=== PATIENT | male | born 1990 | race Caucasian/White ===

== ENCOUNTER 2017-03-04 11:55 | Emergency (ER) | payer SELFPAY ==
[2017-03-04 12:02] VITALS: BP 148/94
--- NOTE | 2017-03-04 12:35 | ER Document Report ---
HPI - HPI Patient complains to provider of: dental pain Pain Level: 3 Context: 26 yo male c/o left lower dental pain x 3 days. + facial swelling. no fever Associated Symptoms: None Exacerbated by: Food Relieved by: Denies Similar symptoms previously: Yes - ROS Systems Reviewed and Negative: Yes All other systems reviewed and negative - DERM Skin Color: Normal, Ruch Past Medical History - General Information source: Patient - Social History Smoking Status: Never Smoker Frequency of alcohol use: None Drug Abuse: None Lives with: Family Family History: Reviewed & Not Pertinent - Medical History Medical History: Negative Pulmonary Medical History: Reports: Hx Asthma Renal/ Medical History: Denies: Hx Peritoneal Dialysis Past Surgical History: Reports: Hx Orthopedic Surgery - left knee - Immunizations Hx Diphtheria, Pertussis, Tetanus Vaccination: Yes Vertical Provider Document - CONSTITUTIONAL Agree With Documented VS: Yes Exam Limitations: No Limitations General Appearance: WD/WN, No Apparent Distress - INFECTION CONTROL TRAVEL OUTSIDE OF THE [place] IN LAST 30 DAYS: No - HEENT HEENT: Atraumatic, PERRLA Mouth Diagram: 1 - pain. no gingival abscess appreciated - NECK Neck: Normal Inspection, Supple - RESPIRATORY Respiratory: Breath Sounds Normal, No Respiratory Distress O2 Sat by Pulse Oximetry: 99 - CARDIOVASCULAR Cardiovascular: Regular Rate, Regular Rhythm - NEURO Level of Consciousness: Awake, Alert, Appropriate - DERM Integumentary: Warm, Dry Course - Re-evaluation Re-evalutation: 03/04/17 12:34 BP noted to be elevated. no hx/o HTN. maybe secondary to pain. pt made aware of blood pressure and recommended to keep BP diary and follow up with pcm. pt is asymptomatic with BP. stable for discharge and agreeable with plan - Vital Signs Vital signs: Temp Pulse Resp BP Pulse Ox 98.2 F 80 18 148/94 H 99 03/04/17 11:58 03/04/17 11:58 03/04/17 11:58 03/04/17 11:58 03/04/17 11:58 Discharge - Discharge Clinical Impression: Pain, dental Condition: Stable Disposition: HOME, SELF-CARE Instructions: Oral Narcotic Medication ([facility]), Toothache ([facility]), Clindamycin ([facility] ) Additional Instructions: Take medications as prescribed Follow up with dental for further evaluation and treatment Prescriptions: Clindamycin HCl 300 mg PO QID #28 capsule Hydrocodone/Acetaminophen [[place] 5-325 Tablet] 1 each PO Q4 #10 tablet Forms: Elevated Blood Pressure
== END 2017-03-04 12:45 | disposition home or self-care (01) ==
LOC: ER 11:55
DX: K08.9 Disorder of teeth and supporting structures, unspecified (principal); R22.0 Localized swelling, mass and lump, head; R03.0 Elevated blood-pressure reading, without diagnosis of hypertension; J45.909 Unspecified asthma, uncomplicated
CPT/HCPCS: 99282

== ENCOUNTER 2017-07-28 13:45 | Emergency (ER) | payer SELFPAY ==
[2017-07-28 15:41] LABS: ABSOLUTE BASOPHILS # (AUTO) 0.1 10^3/uL (0.0-0.2); ABSOLUTE EOSINOPHILS # (AUTO) 0.2 10^3/uL (0.0-0.6); ABSOLUTE LYMPHOCYTES (AUTO) 2.4 10^3/uL (0.5-4.7); ABSOLUTE MONOCYTES (AUTO) 0.7 10^3/uL (0.1-1.4); ABSOLUTE NEUT (AUTO) 5.3 10^3/uL (1.7-8.2); BASOPHILS % (AUTO) 1.3 % (0-2); EOSINOPHILS % (AUTO) 2.7 % (0-6); HEMATOCRIT 46.6 % (37.9-51.0); HEMOGLOBIN 16.4 g/dL (13.5-17.0); HGB HCT DIFFERENCE 2.6; LYMPHOCYTES % (AUTO) 27.8 % (13-45); MEAN CORPUSCULAR HEMOGLOBIN 30.1 pg (27.0-33.4); MEAN CORPUSCULAR HGB CONC 35.3 g/dL (32.0-36.0); MEAN CORPUSCULAR VOLUME 85 fl (80-97); MONOCYTES % (AUTO) 7.6 % (3-13); RED BLOOD COUNT 5.46 10^6/uL (4.35-5.55); RED CELL DISTRIBUTION WIDTH 13.4 % (11.5-14.0); SEGMENTED NEUTROPHILS % (AUTO) 60.6 % (42-78); WHITE BLOOD COUNT 8.7 10^3/uL (4.0-10.5)
[2017-07-28 15:49] LABS: APPEARANCE,URINE CLEAR; BILIRUBIN,URINE NEGATIVE (NEGATIVE); GLUCOSE, URINE NEGATIVE (NEGATIVE); KETONES,URINE NEGATIVE (NEGATIVE); LEUKOCYTE ESTERASE,URINE NEGATIVE (NEGATIVE); NITRITE,URINE NEGATIVE (NEGATIVE); PROTEIN,URINE NEGATIVE (NEGATIVE); URINE SPECIFIC GRAVITY 1.016; UROBILINOGEN,URINE NEGATIVE mg/dL (<2.0)
[2017-07-28 16:27] LABS: ALANINE AMINOTRANSFERASE 68 U/L (21-72); ALBUMIN 4.9 g/dL (3.5-5.0); ALKALINE PHOSPHATASE 56 U/L (38-126); ANION GAP 13 (5-19); ASPARTATE AMINO TRANSFERASE 37 U/L (17-59); BILIRUBIN,DIRECT 0.5 mg/dL (0.0-0.4); BILIRUBIN,TOTAL 0.7 mg/dL (0.2-1.3); BLOOD UREA NITROGEN 17 mg/dL (7-20); CALCIUM 10.4 mg/dL (8.4-10.2); CARBON DIOXIDE 27 mmol/L (22-30); CHLORIDE 102 mmol/L (98-107); CREATININE RESULT 0.98 mg/dL (0.52-1.25); GLUCOSE 88 mg/dL (75-110); LIPASE 37.8 U/L (23-300); POTASSIUM 4.5 mmol/L (3.6-5.0); SODIUM 141.6 mmol/L (137-145); TOTAL PROTEIN 8.4 g/dL (6.3-8.2)
--- NOTE | 2017-07-28 16:37 | ER Document Report ---
ED General - General Chief Complaint: Abdominal Pain Stated Complaint: ABDOMINAL PAIN Time Seen by Provider: 07/28/17 15:18 Mode of Arrival: Ambulatory Information source: Patient Notes: Patient states he has had one year of nausea. He states it is worse when he eats and better when he does not. There is no radiation of the symptoms. The symptoms are intermittent. He states that he has some minimal pain but mainly has nausea. He states that he has not had any vomiting. No fevers. He states he also had some intermittent bloody stools. TRAVEL OUTSIDE OF THE [place] IN LAST 30 DAYS: No - Related Data Allergies/Adverse Reactions: Penicillins Allergy (Verified 07/28/17 14:07) Past Medical History - General Information source: Patient - Social History Smoking Status: Never Smoker Chew tobacco use (# tins/day): No Frequency of alcohol use: None Drug Abuse: None Family History: Reviewed & Not Pertinent Patient has suicidal ideation: No Patient has homicidal ideation: No Pulmonary Medical History: Reports: Hx Asthma Renal/ Medical History: Denies: Hx Peritoneal Dialysis Past Surgical History: Reports: Hx Orthopedic Surgery - left knee - Immunizations Hx Diphtheria, Pertussis, Tetanus Vaccination: Yes Review of Systems - Review of Systems Constitutional: denies: Chills, Fever Cardiovascular: denies: Chest pain, Palpitations Gastrointestinal: Abdominal pain, Nausea. denies: Diarrhea, Vomiting -: Yes All other systems reviewed and negative Physical Exam - Vital signs Vitals: Temp Pulse Resp BP Pulse Ox 98.5 F 75 14 134/79 H 97 07/28/17 14:08 07/28/17 14:08 07/28/17 14:08 07/28/17 14:08 07/28/17 14:08 Interpretation: Hypertensive - General General appearance: Appears well, Alert - HEENT Head: Normocephalic, Atraumatic Eyes: Normal Pupils: PERRL - Respiratory Respiratory status: No respiratory distress Chest status: Nontender Breath sounds: Normal Chest palpation: Normal - Cardiovascular Rhythm: Regular Heart sounds: Normal auscultation Murmur: No - Abdominal Inspection: Normal Distension: No distension Bowel sounds: Normal Tenderness: Nontender Organomegaly: No organomegaly - Back Back: Normal, Nontender - Extremities General upper extremity: Normal inspection, Nontender, Normal color, Normal ROM , Normal temperature General lower extremity: Normal inspection, Nontender, Normal color, Normal ROM , Normal temperature, Normal weight bearing. No: Maribel's sign - Neurological Neuro grossly intact: Yes Cognition: Normal Orientation: AAOx4 Stuart Coma Scale Eye Opening: Spontaneous Trail Coma Scale Verbal: Oriented Trail Coma Scale Motor: Obeys Commands Trail Coma Scale Total: 15 Speech: Normal Motor strength normal: LUE, RUE, LLE, RLE Sensory: Normal - Psychological Associated symptoms: Normal affect, Normal mood - Skin Skin Temperature: Warm Skin Moisture: Dry Skin Color: Normal Course - Vital Signs Vital signs: Temp Pulse Resp BP Pulse Ox 98.5 F 75 14 134/79 H 97 07/28/17 14:08 07/28/17 14:08 07/28/17 14:08 07/28/17 14:08 07/28/17 14:08 - Laboratory Result Diagrams: 07/28/17 15:22 07/28/17 15:22 Laboratory results interpreted by me: 07/28/17 15:22 Calcium 10.4 H Direct Bilirubin 0.5 H Total Protein 8.4 H Discharge - Discharge Clinical Impression: Nausea Condition: Stable Disposition: HOME, SELF-CARE Additional Instructions: Please follow-up with your primary care physician as soon as possible. Prescriptions: Sucralfate [Carafate Susp 1 Gm/10 Ml Udcup] 1 gm PO QID 30 Days udc Forms: Elevated Blood Pressure Referrals: DUKE CHERRY MD [ACTIVE STAFF] - Follow up as needed
[2017-07-28 17:27] VITALS: BP 142/89
== END 2017-07-28 19:27 | disposition home or self-care (01) ==
LOC: ER 13:45
DX: R11.0 Nausea (principal); R10.9 Unspecified abdominal pain; J45.909 Unspecified asthma, uncomplicated
CPT/HCPCS: 36415; 80053; 81001; 83690; 85025; 99284

== ENCOUNTER 2017-10-02 02:00 | Emergency (ER) | payer OTHER ==
--- NOTE | 2017-10-02 03:02 | ER Document Report ---
ED General - General Mode of Arrival: Ambulatory Information source: Patient TRAVEL OUTSIDE OF THE [place] IN LAST 30 DAYS: No - HPI Onset: Just prior to arrival <THERESA VASQUEZ - Last Filed: 10/02/17 04:13> <JOSS RONDON - Last Filed: 10/02/17 04:38> - General Chief Complaint: Cough Stated Complaint: COUGHING BLOOD Time Seen by Provider: 10/02/17 02:45 Notes: Patient is a 27 year old male that presents to the emergency department complaining of coughing up blood onset around 02:00. Patient states that he has had a small cough for two days but it worsened when he was eating string cheese and started to cough up blood. Patient states that the blood was fresh and around a quarter of a cup full in amount. Patient states that when he was coughing up blood he could not breath and states "it felt like something opened up". Patient also complains of a itchy feeling at the top of his right lung and an itchy feeling in his throat. Patient denies any SOB or lightheadedness at this time. Patient states he has not been on any long drives or taken any hormones recently. (THERESA VASQUEZ) - Related Data Allergies/Adverse Reactions: Penicillins Allergy (Verified 10/02/17 02:03) Past Medical History - General Information source: Patient - Social History Smoking Status: Never Smoker Chew tobacco use (# tins/day): No Frequency of alcohol use: None Drug Abuse: None Family History: Reviewed & Not Pertinent Patient has suicidal ideation: No Patient has homicidal ideation: No Pulmonary Medical History: Reports: Hx Asthma Renal/ Medical History: Denies: Hx Peritoneal Dialysis Past Surgical History: Reports: Hx Orthopedic Surgery - left knee - Immunizations Hx Diphtheria, Pertussis, Tetanus Vaccination: Yes <THERESA VASQUEZ - Last Filed: 10/02/17 04:13> Review of Systems - Review of Systems Constitutional: No symptoms reported EENT: No symptoms reported Cardiovascular: No symptoms reported Respiratory: See HPI, Cough - coughing up blood, Sputum, Other. denies: Short of breath Gastrointestinal: No symptoms reported Genitourinary: No symptoms reported Male Genitourinary: No symptoms reported Musculoskeletal: No symptoms reported Skin: No symptoms reported Hematologic/Lymphatic: No symptoms reported Neurological/Psychological: No symptoms reported -: Yes All other systems reviewed and negative <CHRISTINATHERESA BAEZA - Last Filed: 10/02/17 04:13> Physical Exam <CHRISTINAVIGNESHFAUSTINO - Last Filed: 10/02/17 04:13> <JOSS RONDON - Last Filed: 10/02/17 04:38> - Vital signs Vitals: Temp Pulse Resp BP Pulse Ox 98.3 F 103 H 22 H 145/87 H 97 10/02/17 02:05 10/02/17 02:05 10/02/17 02:05 10/02/17 02:05 10/02/17 02:05 - Notes Notes: GENERAL: Alert, interacts well. No acute distress. HEAD: Normocephalic, atraumatic. EYES: Pupils equal, round, and reactive to light. Extraocular movements intact. ENT: Oral mucosa moist, tongue midline. Nares patent, no nasal septal hematoma. Left TM is slightly injected. Right TM normal. No bleeding in the nose. Small amount of blood in the posterior orophraynx. LUNGS: Clear to auscultation bilaterally, no wheezes, rales, or rhonchi. No respiratory distress. HEART: Regular rate and rhythm. No murmurs, gallops, or rubs. ABDOMEN: Soft, non-tender. Non-distended. Bowel sounds present in all 4 quadrants. EXTREMITIES: Moves all 4 extremities spontaneously. NEUROLOGICAL: Alert and oriented x3. Normal speech. PSYCH: Normal affect, normal mood. SKIN: Warm, dry, normal turgor. No rashes or lesions noted. (CHRISTINAVIGNESHFAUSTINO) Course - Laboratory Result Diagrams: 10/02/17 03:05 10/02/17 03:05 <CHRISTINATHERESA BAEZA - Last Filed: 10/02/17 04:13> - Laboratory Result Diagrams: 10/02/17 03:05 10/02/17 03:05 <JOSS RONDON - Last Filed: 10/02/17 04:38> - Re-evaluation Re-evalutation: 10/02/17 04:03 CBC shows leukocytosis of 14.3, coags normal, CMP grossly unremarkable, chest x- ray shows no acute process. No sign of continuing bleeding at this time despite continuing dry cough. No evidence of massive hemoptysis, amount of blood estimated at approximately 1/4 cup by patient. No hypoxia, tachypnea or tachycardia. Patient is recommended to return should he develop further hemoptysis, given Tessalon Perles to decrease his cough and recommend follow-up as an outpatient with his primary care physician for further workup. No risk factors for pulmonary embolism. (JOSS RONDON) - Vital Signs Vital signs: Temp Pulse Resp BP Pulse Ox 98 F 78 18 142/87 H 98 10/02/17 04:23 10/02/17 04:23 10/02/17 04:23 10/02/17 04:23 10/02/17 04:23 - Laboratory Laboratory results interpreted by me: 10/02/17 10/02/17 03:05 03:05 WBC 14.3 H Absolute Neutrophils 9.6 H Sodium 145.1 H Total Protein 8.5 H Discharge <THERESA VASQUEZ - Last Filed: 10/02/17 04:13> <JOSS RONDON - Last Filed: 10/02/17 04:38> - Discharge Clinical Impression: Cough with hemoptysis Hypertension Qualifiers: Hypertension type: unspecified Qualified Code(s): I10 - Essential (primary) hypertension Obesity Qualifiers: Obesity type: unspecified obesity type Obesity classification: adult class 3 ( BMI >= 40) Serious obesity comorbidity presence: without serious comorbidity Body mass index: BMI 45.0-49.9 Qualified Code(s): E66.9 - Obesity, unspecified Condition: Stable Disposition: HOME, SELF-CARE Additional Instructions: Hemoptysis Hemoptysis (coughing up blood) can occur with many different diseases. Most commonly, it's due to an infection such as bronchitis. Although alarming, the presence of blood in the phlegm doesn't change the treatment of bronchitis or pneumonia. The physician has evaluated you to see if there is evidence of an underlying problem requiring further evaluation. Hemoptysis without an identifiable cause can be due to tumors or hidden infections. Sometimes it can come from a nosebleed. We did not see any signs of infection or tumor today. Return for a recheck if the blood increases greatly in amount, or if you develop shortness of breath, high fever, severe chest pain, or other alarming new symptoms. You have high blood pressure. This can be due to anxiety but it can also be a health problem that needs to be treated. Please follow-up with your primary care physician for further evaluation of your elevated blood pressure. Prescriptions: Benzonatate [Tessalon Perles 100 mg Capsule] 100 mg PO Q8HP PRN #40 capsule PRN Reason: Forms: Elevated Blood Pressure Referrals: MINERVA GARZA MD [ACTIVE STAFF] - Follow up in 1 week Scribe Attestation: 10/02/17 04:38 I personally performed the services described in the documentation, reviewed and edited the documentation which was dictated to the scribe in my presence, and it accurately records my words and actions. (JOSS RONDON) Scribe Documentation - Scribe Written by Selinaibe:: Mary Lou Nascimento, 10/02/2017 acting as scribe for :: Garrett <THERESA VASQUEZ - Last Filed: 10/02/17 04:13>
--- NOTE | 2017-10-02 03:15 | RADIOLOGY REPORT (SQ) ---
EXAM DESCRIPTION: CHEST PA/LAT COMPLETED DATE/TIME: 10/02/2017 3:04 am REASON FOR STUDY: coughing up blood COMPARISON: None. EXAM PARAMETERS: NUMBER OF VIEWS: two views TECHNIQUE: Digital Frontal and Lateral radiographic views of the chest acquired. RADIATION DOSE: NA LIMITATIONS: none FINDINGS: LUNGS AND PLEURA: No opacities, masses or pneumothorax. No pleural effusion. MEDIASTINUM AND HILAR STRUCTURES: No masses or contour abnormalities. HEART AND VASCULAR STRUCTURES: Heart normal size. No evidence for failure. BONES: No acute findings. HARDWARE: None in the chest. OTHER: No other significant finding. IMPRESSION: NO SIGNIFICANT RADIOGRAPHIC FINDING IN THE CHEST. TECHNICAL DOCUMENTATION: JOB ID: [id number] [employer]- All Rights Reserved
[2017-10-02 03:36] LABS: ABSOLUTE BASOPHILS # (AUTO) 0.1 10^3/uL (0.0-0.2); ABSOLUTE EOSINOPHILS # (AUTO) 0.3 10^3/uL (0.0-0.6); ABSOLUTE LYMPHOCYTES (AUTO) 3.1 10^3/uL (0.5-4.7); ABSOLUTE MONOCYTES (AUTO) 1.1 10^3/uL (0.1-1.4); ABSOLUTE NEUT (AUTO) 9.6 10^3/uL (1.7-8.2); EOSINOPHILS % (AUTO) 2.5 % (0-6); HEMATOCRIT 45.9 % (37.9-51.0); HEMOGLOBIN 15.9 g/dL (13.5-17.0); HGB HCT DIFFERENCE 1.8; LYMPHOCYTES % (AUTO) 21.8 % (13-45); MEAN CORPUSCULAR HEMOGLOBIN 29.9 pg (27.0-33.4); MEAN CORPUSCULAR HGB CONC 34.7 g/dL (32.0-36.0); MEAN CORPUSCULAR VOLUME 86 fl (80-97); MONOCYTES % (AUTO) 7.4 % (3-13); RED BLOOD COUNT 5.32 10^6/uL (4.35-5.55); SEGMENTED NEUTROPHILS % (AUTO) 67.3 % (42-78); WHITE BLOOD COUNT 14.3 10^3/uL (4.0-10.5)
[2017-10-02 03:51] LABS: PROTHROMBIN TIME 12.7 SEC (11.4-15.4)
[2017-10-02 03:52] LABS: PARTIAL THROMBOPLASTIN TIME 35.5 SEC (23.5-35.8)
[2017-10-02 03:54] LABS: ALANINE AMINOTRANSFERASE 70 U/L (21-72); ALKALINE PHOSPHATASE 57 U/L (38-126); ANION GAP 18 (5-19); ASPARTATE AMINO TRANSFERASE 28 U/L (17-59); BILIRUBIN,DIRECT 0.4 mg/dL (0.0-0.4); BILIRUBIN,TOTAL 0.6 mg/dL (0.2-1.3); BLOOD UREA NITROGEN 17 mg/dL (7-20); CALCIUM 9.9 mg/dL (8.4-10.2); CARBON DIOXIDE 26 mmol/L (22-30); CHLORIDE 101 mmol/L (98-107); CREATININE RESULT 1.23 mg/dL (0.52-1.25); GLUCOSE 102 mg/dL (75-110); POTASSIUM 4.2 mmol/L (3.6-5.0); SODIUM 145.1 mmol/L (137-145); TOTAL PROTEIN 8.5 g/dL (6.3-8.2)
[2017-10-02] MEDS ORDERED: BENZONATATE 100 MG CAPSULE PO ONE (04:14)
[2017-10-02 04:24] VITALS: BP 142/87
== END 2017-10-02 04:23 | disposition home or self-care (01) ==
LOC: ER 02:00
DX: R04.2 Hemoptysis (principal); I10 Essential (primary) hypertension; E66.9 Obesity, unspecified; Z68.42 Body mass index [BMI] 45.0-49.9, adult; Z88.0 Allergy status to penicillin
CPT/HCPCS: 36415; 71020; 80053; 85025; 85610; 85730; 99283

== ENCOUNTER 2019-06-01 21:56 | Emergency (ER) | payer SELFPAY ==
--- NOTE | 2019-06-01 23:46 | EKG REPORT ---
SEVERITY:- ABNORMAL ECG - SINUS RHYTHM INCOMPLETE RIGHT BUNDLE BRANCH BLOCK : Confirmed by: Norberto Coley 01-Jun-2019 23:45:54
--- NOTE | 2019-06-02 00:47 | ER Document Report ---
ED General - General Chief Complaint: Chest Pain > 30 Stated Complaint: ABDOMINAL PAIN Time Seen by Provider: 06/02/19 00:34 Notes: Patient is a pleasant 29-year-old male who presents with complaint of recurrent burning pain into his epigastrium and right upper quadrant. He says sometimes and will radiate around rest of his upper abdomen. He says it seems to occur more when he eats. He also occurs at night when he lays down to sleep. Been admitted for a while but became worse tonight. He also has a history of high blood pressure which he takes lisinopril and hydrochlorothiazide. Says he notices that when he is having the pain that his blood pressure gets higher. No vomiting. No fevers. No bloody stools. No other complaints at this time. Have a previous history of gastric ulcer. He does not take a PPI or H2 evelin. TRAVEL OUTSIDE OF THE [place] IN LAST 30 DAYS: No - Related Data Allergies/Adverse Reactions: Penicillins Allergy (Verified 10/02/17 02:03) Past Medical History - Social History Smoking Status: Never Smoker Frequency of alcohol use: None Drug Abuse: None Family History: Reviewed & Not Pertinent Pulmonary Medical History: Reports: Hx Asthma Renal/ Medical History: Denies: Hx Peritoneal Dialysis Past Surgical History: Reports: Hx Orthopedic Surgery - left knee - Immunizations Hx Diphtheria, Pertussis, Tetanus Vaccination: Yes Review of Systems - Review of Systems Notes: My Normal Review Basic REVIEW OF SYSTEMS: CONSTITUTIONAL : Denies fever, chills, or sweats. Denies recent illness. CARDIOVASCULAR: Denies chest pain. RESPIRATORY: Denies cough, cold, or chest congestion. Denies shortness of breath, difficulty breathing, or wheezing. GASTROINTESTINAL: Upper abdominal pain. Some nausea. GENITOURINARY: Denies difficulty urinating, painful urination, burning, frequency, or blood in urine. MUSCULOSKELETAL: Denies neck or back pain or joint pain or swelling. SKIN: Denies rash or skin lesions. NEUROLOGICAL: Denies altered mental status or loss of consciousness. Denies headache. Denies weakness or paralysis or loss of use of either side. Denies problems with gait or speech. Denies sensory or motor loss. ALL OTHER SYSTEMS REVIEWED AND NEGATIVE. Physical Exam - Vital signs Vitals: Temp Pulse Resp BP Pulse Ox 98.6 F 69 14 148/70 H 98 06/01/19 22:09 06/01/19 22:09 06/01/19 22:09 06/01/19 22:09 06/01/19 22:09 - Notes Notes: General Appearance: Well nourished, alert, cooperative, no acute distress, no obvious discomfort. Well-appearing. Vitals: reviewed, See vital signs table. Head: no swelling or tenderness to the head Eyes: PERRL, EOMI, Conjuctiva clear Mouth: No decreasd moisture Lungs: No wheezing, No rales, No rhonci, No accessory muscle use, good air exchange bilaterally. Heart: Normal rate, Regular rythm, No murmur, no rub Abdomen: Normal BS, soft, No rigidity, some mild upper abdominal pain to palpation at worse over the epigastrium., No guarding, no rebound, no abdominal masses, no organomegaly Extremities: good pulses in all extremities, no edema. Skin: warm, dry, appropriate color, no rash Neuro: speech clear, oriented x 3, normal affect, responds appropriately to questions. Course - Re-evaluation Re-evalutation: 06/02/19 02:20 Patient's work-up looking at his gallbladder does not show any concerning findings other than a fatty liver. Discuss fatty liver with him informed him the need for weight loss. I like that his pain is related to gastritis and possible duodenitis. He has a known gastric ulcer. He has a burning type pain in his upper abdomen is worse at nighttime. Is also noticed some with eating. I feel that its appropriate treat him for gastritis and duodenitis. I will place him on Carafate as well as Prilosec. I encouraged him to follow-up closely with his primary care doctor. Blood pressure is low but high however informed him I would not want to add anything to his blood pressure at this time as it is likely high because his been having pain and if we get of his pain is blood pressure could drop too low if he is placed on a third blood pressure medication. Patient is understanding of this. I encouraged him to keep track of his blood pressure and follow-up closely with his primary care doctor this coming week for reevaluation. Patient encouraged to return to ER if he has black or tarry stools, worsening pain, fevers, or feels unwell. Dictation of this chart was performed using voice recognition software; ther efore, there may be some unintended grammatical errors. - Vital Signs Vital signs: Temp Pulse Resp BP Pulse Ox 98.4 F 68 18 136/67 H 98 06/02/19 02:31 06/02/19 02:31 06/02/19 02:31 06/02/19 02:31 06/02/19 02:31 - Laboratory Result Diagrams: 06/02/19 00:50 06/02/19 00:50 Laboratory results interpreted by me: 06/02/19 06/02/19 00:50 00:50 WBC 11.4 H Creatinine 1.26 H Total Protein 8.3 H - EKG Interpretation by Me Additional EKG results interpreted by me: 06/02/19 02:16 EKG is reviewed and interpreted by me. EKG shows sinus rhythm with rate of [address] segment elevation or depression. No ischemic T wave inversions. FL interval and QTc intervals are within normal range. QRS duration is slightly prolonged. No old EKG available for comparison. Discharge - Discharge Clinical Impression: Abdominal pain, Hypertension Condition: Good Disposition: HOME, SELF-CARE Additional Instructions: Your ultrasound looking at your gallbladder did not show any concerning abnormalities with the gallbladder. I suspect that most likely your pain is re lated to gastritis or nonbleeding ulcer in your stomach. This will cause pain when you eat and drink and also cause you to vomit. Please buy [id number] omeprazole. This is the generic of Prilosec. Please take 20 mg of omeprazole every day for 2 weeks. After 2 weeks you should switch to Pepcid 20 mg a day. I have prescribed Carafate. You can start taking the Carafate if you are not having improvement of your pain after 2-3 days of treatment with the omeprazole. Diet is extremely important in treating this. Please drink non-caffeinated nonacidic fluids for the next 24 hours. After 24 hours you can start eating food again. Please avoid anything that spicy, acidic, or fatty or fried. Please eat only very bland foods such as bread or rice. Please avoid smoking. Please avoid coffee and tea. Please return to the ER immediately if you have worsening pain, fevers, intractable vomiting, or if you ever have any vomiting of blood or black or tarry stools. Avoid any NSAID use such as advil, ibuprofen, motrin, aleve, or naprosyn. Tylenol is safe to take. The ultrasound of the right upper portion of your abdomen does show that you have beginnings of a fatty liver. Please work on weight loss as this will help reduce the chances of your liver progressing. Without weight loss or diet change her liver could potentially become more fatty and then lead to liver failure. Pleae follow up with your doctor this coming week for reevaluation. Prescriptions: Sucralfate [Carafate 1 gm Tablet] 1 gm PO ACHS #120 tablet Forms: Return to Work
[2019-06-02 01:04] LABS: ABSOLUTE BASOPHILS # (AUTO) 0.1 10^3/uL (0.0-0.2); ABSOLUTE EOSINOPHILS # (AUTO) 0.3 10^3/uL (0.0-0.6); ABSOLUTE LYMPHOCYTES (AUTO) 2.7 10^3/uL (0.5-4.7); ABSOLUTE MONOCYTES (AUTO) 0.9 10^3/uL (0.1-1.4); ABSOLUTE NEUT (AUTO) 7.4 10^3/uL (1.7-8.2); BASOPHILS % (AUTO) 0.7 % (0-2); EOSINOPHILS % (AUTO) 2.6 % (0-6); HEMATOCRIT 45.2 % (37.9-51.0); HEMOGLOBIN 15.4 g/dL (13.5-17.0); LYMPHOCYTES % (AUTO) 23.7 % (13-45); MEAN CORPUSCULAR HEMOGLOBIN 28.9 pg (27.0-33.4); MEAN CORPUSCULAR HGB CONC 34.2 g/dL (32.0-36.0); MEAN CORPUSCULAR VOLUME 85 fl (80-97); MONOCYTES % (AUTO) 7.8 % (3-13); PLATELET COUNT 301 10^3/uL (150-450); RED BLOOD COUNT 5.34 10^6/uL (4.35-5.55); RED CELL DISTRIBUTION WIDTH 12.8 % (11.5-14.0); SEGMENTED NEUTROPHILS % (AUTO) 65.2 % (42-78); TOTAL CELLS COUNTED % (AUTO) 100 %; WHITE BLOOD COUNT 11.4 10^3/uL (4.0-10.5)
[2019-06-02 01:27] LABS: ALANINE AMINOTRANSFERASE 41 U/L (21-72); ALKALINE PHOSPHATASE 54 U/L (38-126); ANION GAP 13 (5-19); ASPARTATE AMINO TRANSFERASE 36 U/L (17-59); BILIRUBIN,DIRECT 0.3 mg/dL (0.0-0.4); BILIRUBIN,TOTAL 0.6 mg/dL (0.2-1.3); BLOOD UREA NITROGEN 19 mg/dL (7-20); CARBON DIOXIDE 27 mmol/L (22-30); CHLORIDE 99 mmol/L (98-107); GLUCOSE 93 mg/dL (75-110); POTASSIUM 3.6 mmol/L (3.6-5.0); TOTAL PROTEIN 8.3 g/dL (6.3-8.2)
--- NOTE | 2019-06-02 01:33 | RADIOLOGY REPORT (SQ) ---
CLINICAL HISTORY: RUQ pain COMPARISON: None. TECHNIQUE: US ABDOMEN DOPPLER LIMITED on 06/02/2019 12:42 AM CDT FINDINGS: Liver is fatty in echotexture. Portal vein is patent. Gallbladder is normally distended without wall thickening, gallstones or pericholecystic fluid. Common bile that measures 2 mm. Right kidney measures 11.7 cm without hydronephrosis. IMPRESSION: Fatty liver. Otherwise unremarkable study.
[2019-06-02] MEDS ORDERED: FAMOTIDINE 20 MG TABLET PO ONE (02:23)
[2019-06-02] MEDS ORDERED: SUCRALFATE 1 GM TABLET PO ONE (02:23)
[2019-06-02 02:47] VITALS: BP 136/67
== END 2019-06-02 02:43 | disposition home or self-care (01) ==
LOC: ER 21:56
DX: K25.9 Gastric ulcer, unspecified as acute or chronic, without hemorrhage or perforation (principal); I10 Essential (primary) hypertension; R10.13 Epigastric pain; R10.11 Right upper quadrant pain; R11.0 Nausea; K76.0 Fatty (change of) liver, not elsewhere classified; J45.909 Unspecified asthma, uncomplicated; Z79.899 Other long term (current) drug therapy; Z88.0 Allergy status to penicillin
CPT/HCPCS: 36415; 76705; 80053; 83690; 85025; 93005; 93010; 93976; 99284

== ENCOUNTER 2019-10-22 01:08 | Emergency (ER) | payer SELFPAY ==
[2019-10-22 02:34] LABS: ABSOLUTE BASOPHILS # (AUTO) 0.1 10^3/uL (0.0-0.2); ABSOLUTE EOSINOPHILS # (AUTO) 0.2 10^3/uL (0.0-0.6); ABSOLUTE LYMPHOCYTES (AUTO) 2.8 10^3/uL (0.5-4.7); ABSOLUTE MONOCYTES (AUTO) 0.9 10^3/uL (0.1-1.4); ABSOLUTE NEUT (AUTO) 8.4 10^3/uL (1.7-8.2); EOSINOPHILS % (AUTO) 1.5 % (0-6); HEMATOCRIT 52.6 % (37.9-51.0); HEMOGLOBIN 18.2 g/dL (13.5-17.0); LYMPHOCYTES % (AUTO) 22.6 % (13-45); MEAN CORPUSCULAR HEMOGLOBIN 28.9 pg (27.0-33.4); MEAN CORPUSCULAR HGB CONC 34.6 g/dL (32.0-36.0); MEAN CORPUSCULAR VOLUME 84 fl (80-97); MONOCYTES % (AUTO) 7.1 % (3-13); PLATELET COUNT 375 10^3/uL (150-450); RED BLOOD COUNT 6.29 10^6/uL (4.35-5.55); RED CELL DISTRIBUTION WIDTH 12.9 % (11.5-14.0); SEGMENTED NEUTROPHILS % (AUTO) 67.8 % (42-78); TOTAL CELLS COUNTED % (AUTO) 100 %; WHITE BLOOD COUNT 12.4 10^3/uL (4.0-10.5)
[2019-10-22 02:42] LABS: ALBUMIN 5.2 g/dL (3.5-5.0); ALKALINE PHOSPHATASE 66 U/L (38-126); ANION GAP 16 (5-19); ASPARTATE AMINO TRANSFERASE 34 U/L (17-59); BILIRUBIN,DIRECT 0.2 mg/dL (0.0-0.4); BILIRUBIN,TOTAL 0.7 mg/dL (0.2-1.3); BLOOD UREA NITROGEN 21 mg/dL (7-20); CALCIUM 10.3 mg/dL (8.4-10.2); CARBON DIOXIDE 28 mmol/L (22-30); CHLORIDE 94 mmol/L (98-107); CREATINE KINASE 455 U/L (55-170); GLUCOSE 100 mg/dL (75-110); POTASSIUM 3.4 mmol/L (3.6-5.0); TOTAL PROTEIN 9.2 g/dL (6.3-8.2)
[2019-10-22 02:53] LABS: CREATINE KINASE MB 5.13 ng/mL (<4.55)
[2019-10-22 02:54] LABS: TROPONIN I < 0.012 ng/mL
[2019-10-22] MEDS ORDERED: PANTOPRAZOLE SODIUM 40 MG TABLET.DR PO ONE (07:23)
--- NOTE | 2019-10-22 07:38 | EKG REPORT ---
SEVERITY:- ABNORMAL ECG - SINUS RHYTHM IVCD, CONSIDER ATYPICAL RBBB : Confirmed by: Sal Velasquez MD 22-Oct-2019 07:37:43
--- NOTE | 2019-10-22 07:43 | ER Document Report ---
ED Cardiac - General Chief Complaint: Chest Pain Stated Complaint: CHEST PAIN Time Seen by Provider: 10/22/19 07:22 Notes: 29-year-old male with past medical history of hypertension presents with chest tightness that is been ongoing for approximately a week. Patient states he ate some spicy food approximately 1 week ago that aggravated his reflux and now has been having elevated blood pressure tightness and reflux patient has tried to reduce salt intake to see if that would help however his blood pressure keeps rising. Patient states he saw PCP this past week to get a refill on his blood pressure medicine but this does not seem to have helped. Patient was also prescribed something that "coats my stomach." Patient has a history of gastric ulcers. Patient denies any family history of cardiac problems. Patient is a former smoker. Patient denies any recent hospitalizations, any recent surgeries, personal history of cancer, recent long distance travel, history of PE/DVT, or testosterone use. TRAVEL OUTSIDE OF THE [place] IN LAST 30 DAYS: No - Related Data Allergies/Adverse Reactions: Penicillins Allergy (Verified 10/02/17 02:03) Home Medications: lisinopril/hctz. carafate Past Medical History - Social History Smoking Status: Former Smoker Chew tobacco use (# tins/day): No Frequency of alcohol use: None Drug Abuse: None Family History: Reviewed & Not Pertinent Patient has suicidal ideation: No Patient has homicidal ideation: No Pulmonary Medical History: Reports: Hx Asthma Renal/ Medical History: Denies: Hx Peritoneal Dialysis Past Surgical History: Reports: Hx Orthopedic Surgery - left knee - Immunizations Hx Diphtheria, Pertussis, Tetanus Vaccination: Yes Review of Systems - Review of Systems Notes: Constitutional: Negative for fever. HENT: Negative for sore throat. Eyes: Negative for visual changes. Cardiovascular: Positive for chest pain. Respiratory: Negative for shortness of breath. Gastrointestinal: Positive for nausea. Negative for abdominal pain, vomiting or diarrhea. Genitourinary: Negative for dysuria. Musculoskeletal: Negative for back pain. Skin: Negative for rash. Neurological: Negative for headaches, weakness or numbness. 10 point ROS negative except as marked above and in HPI. Physical Exam - Vital signs Vitals: Temp Pulse Resp BP Pulse Ox 98.5 F 79 18 134/69 H 100 10/22/19 01:19 10/22/19 01:19 10/22/19 01:19 10/22/19 01:19 10/22/19 01:19 - Notes Notes: GENERAL: Well-appearing, well-nourished and in no acute distress. HEAD: Atraumatic, normocephalic. EYES: Extraocular movements intact, sclera anicteric, conjunctiva are normal. NECK: Normal range of motion, supple without lymphadenopathy or JVD. LUNGS: Breath sounds clear to auscultation bilaterally and equal. No wheezes rales or rhonchi. HEART: Regular rate and rhythm without murmurs, rubs or gallops. ABDOMEN: Soft, nontender. No guarding, no rebound. No masses appreciated. EXTREMITIES: Normal range of motion, no pitting or edema. No clubbing or cyanosis. NEUROLOGICAL: Cranial nerves II through XII grossly intact. Normal speech, normal gait. PSYCH: Normal mood, normal affect. SKIN: Warm, Dry, normal turgor, no rashes or lesions noted. Course - Re-evaluation Re-evalutation: 10/22/19 Presentation of chest pain in an otherwise well appearing patient. Low clinical suspicion for ACS given clinical history, exam, EKG without ST elevations or depressions, and negative initial troponin. HEART score less than or equal to 3. PE also seems unlikely given clinical history, absence of tachycardia or dyspnea. Patient is PERC criteria negative. CXR without evidence of pneumothorax or pneumonia. No widened mediastinum. Aortic dissection also seems unlikely given history, symmetric pulses, CXR, and vitals. HEART Score: 1 Chest pain in a patient without evidence of cardiac or other serious etiology on workup today. I discussed with patient that, based on their age, risk factors and emergency department testing today, the likelihood that their symptoms are related to a heart attack is very low (estimated risk of heart attack or over the next 30 days of less than 1%). The patient demonstrates decision homar g capacity and has verbalized an understanding of these risks to me. Based on this, the patient has chosen to follow-up as an outpatient. Usual chest pain return precautions reviewed. The patient states understanding and agreement with this plan. - Vital Signs Vital signs: Temp Pulse Resp BP Pulse Ox 98.5 F 79 18 134/69 H 100 10/22/19 01:37 10/22/19 01:19 10/22/19 01:37 10/22/19 01:19 10/22/19 01:37 - Laboratory Result Diagrams: 10/22/19 01:52 10/22/19 01:52 Laboratory results interpreted by me: 10/22/19 10/22/19 10/22/19 01:52 01:52 01:52 WBC 12.4 H RBC 6.29 H Hgb 18.2 H Hct 52.6 H Absolute Neuts (auto) 8.4 H Potassium 3.4 L Chloride 94 L BUN 21 H Calcium 10.3 H Creatine Kinase 455 H CK-MB (CK-2) 5.13 H Total Protein 9.2 H Albumin 5.2 H Discharge - Discharge Clinical Impression: Chest pain Qualifiers: Chest pain type: unspecified Qualified Code(s): R07.9 - Chest pain, unspecified GERD (gastroesophageal reflux disease) Qualifiers: Esophagitis presence: without esophagitis Qualified Code(s): K21.9 - Gastro- esophageal reflux disease without esophagitis Condition: Stable Disposition: HOME, SELF-CARE Instructions: Chest Pain of Unclear Cause ([facility]), Reflux Disease (GERD) ([facility]) Additional Instructions: You were seen today for chest pain. The exact cause of your pain is unclear. However, based on your cardiac enzyme testing, chest x-ray, and EKG it does not appear that it is from an immediately life-threatening cause at this time. Although your testing here is normal is critical that you follow-up with your primary care physician for continued evaluation of this chest pain and possible stress testing. I recommended you see your physician within the next 24-48 [address] to be evaluated for consideration of a stress test. Please return to emergency department immediately if you have worsening of your chest pain, shortness of breath, vomiting, become unable to exert yourself due to pain or difficulty breathing, you pass out, or have any pain that radiates into your arms, jaw, or back. Please also return if you have any additional symptoms that are concerning to you. Please take medications as prescribed. Please follow-up with GI when you are able to. Please return to ER if you start having any worsening symptoms, including worsening abdominal pain, vomiting, reflux symptoms not being improved by medication, fever, or any symptoms that are concerning to you. Prescriptions: Pantoprazole Sodium [Protonix [address] Tablet] 40 mg PO QAM #30 tablet. Referrals: MINERVA GARZA MD [ACTIVE STAFF] - Follow up as needed FRANCISCA PAVON MD [EMERITUS] - Follow up as needed IRVING OCASIO MD [ACTIVE STAFF] - Follow up as needed
[2019-10-22 08:33] VITALS: BP 136/66
--- NOTE | 2019-10-22 08:34 | RADIOLOGY REPORT (SQ) ---
EXAM DESCRIPTION: CHEST 2 VIEWS COMPLETED DATE/TIME: 10/22/2019 7:50 am REASON FOR STUDY: chest pain COMPARISON: 2017 TECHNIQUE: Frontal and lateral radiographic views of the chest acquired. NUMBER OF VIEWS: Two view. LIMITATIONS: None. FINDINGS: LUNGS AND PLEURA: No opacities, masses or pneumothorax. No pleural effusion. MEDIASTINUM AND HILAR STRUCTURES: No masses or contour abnormalities. HEART AND VASCULAR STRUCTURES: Heart normal size. No evidence for failure. BONES: No acute findings. HARDWARE: None in the chest. OTHER: No other significant finding. IMPRESSION: NO SIGNIFICANT RADIOGRAPHIC FINDING IN THE CHEST. TECHNICAL DOCUMENTATION: JOB ID: [id number] [employer]- All Rights Reserved Reading location - IP/workstation name: [email or web address]
== END 2019-10-22 09:00 | disposition home or self-care (01) ==
LOC: ER 01:08
DX: R07.89 Other chest pain (principal); I10 Essential (primary) hypertension; K21.9 Gastro-esophageal reflux disease without esophagitis; K25.9 Gastric ulcer, unspecified as acute or chronic, without hemorrhage or perforation; J45.909 Unspecified asthma, uncomplicated; R11.0 Nausea; Z88.0 Allergy status to penicillin; Z87.891 Personal history of nicotine dependence
CPT/HCPCS: 93005; 36415; 82553; 82550; 85025; 80053; 84484; 71046; 93010; J3490; 99285

== ENCOUNTER 2019-12-09 10:14 | Day surgery (SDC) | payer BC ==
[~2019-12-09 10:14] MED LIST: LIDOCAINE 2% INJ-PF (20 MG/ML) 10 ML AMPUL ONE; PROPOFOL INJ 200 MG/20 ML VIAL IV ONE
--- NOTE | 2019-12-09 11:31 | Operative Report ---
Operative Report DATE OF SURGERY: 12/09/19 Operative Report: The risk, benefits and alternatives of the procedure including the risk of bleeding, perforation requiring surgery have been explained to the patient in detail and informed consent has been obtained. The patient is placed in a left, lateral decubital position. Timeout was called. Propofol medication is administered. Rectal examination is done which did not reveal any masses, tears or fissures. An Olympus videoscope was introduced into the patient's rectum. Scope was then carefully advanced all the way to the cecum. The cecum was identified by the usual anatomical landmarks including the ileocecal valve as well as the appendiceal office. Photodocumentation is obtained. Scope was then sequentially pulled back via the various segments of the colon including the ascending colon, back flexure, transverse colon, splenic flexure, descending colon and finally into the rectosigmoid portions of the colon. Retroflexion maneuvers performed. The risks benefits and alternatives of the procedure explained to the patient in detail and informed consent is obtained.A GIF Olympus video scope was inserted into the patient's mouth and hypopharynx, the esophagus is identified intubated and insufflated ,the scope was then advanced through the esophagus stomach and duodenum ,retroflexion maneuver is done, the esophagus stomach and first and second portions of the duodenum examined PREOPERATIVE DIAGNOSIS: Epigastric pain, change in bowel habits POSTOPERATIVE DIAGNOSIS: Terminal ileitis status post biopsy rule out Crohn's disease. Gastritis status post biopsy without Helicobacter pylori OPERATION: Colonoscopy with biopsy. EGD with biopsy SURGEON: MARIANO DILL ANESTHESIA: LMAC TISSUE REMOVED OR ALTERED: As noted above. COMPLICATIONS: None. ESTIMATED BLOOD LOSS: None. INTRAOPERATIVE FINDINGS: As noted above. PROCEDURE: Patient tolerated the procedure well. No immediate postprocedure complications are noted. Patient is discharged in good condition. Discharge date 12/09/2019. Discharge diet: Regular. Discharge activity: Regular. 2 to 3-week follow-up to discuss findings. Patient is instructed to call the office or proceed to the emergency room should there be any further problems or questions. Wait on the pathology.
[2019-12-09 12:36] VITALS: BP 128/69
== END 2019-12-09 12:10 | disposition home or self-care (01) ==
LOC: END 10:14
PROVIDERS: ATTEND Internal Medicine Gastroenterology
DX: K52.9 Noninfective gastroenteritis and colitis, unspecified (principal); K29.50 Unspecified chronic gastritis without bleeding; K92.1 Melena; E66.9 Obesity, unspecified; J45.909 Unspecified asthma, uncomplicated; I10 Essential (primary) hypertension; Z87.891 Personal history of nicotine dependence; Z79.899 Other long term (current) drug therapy; Z68.41 Body mass index [BMI] 40.0-44.9, adult
CPT/HCPCS: 43239; 45380; 88305 ×2; 00813; J2704; J3490; 813